=== PATIENT | male | born 1970 | race Caucasian/White ===

== ENCOUNTER 2020-11-28 07:27 | Emergency (ER) | payer SELFPAY ==
[2020-11-28 07:42] VITALS: BP 159/92; PULSE 88; RESP 18; TEMP 36.7; O2SAT 96; BMI 33.9
--- NOTE | 2020-11-28 07:49 | ED_ITS ---
HPI - Skin/Abscess/Foreign Bdy General Chief complaint: Skin/Abscess/Foreign Body Stated complaint: Rash Time Seen by Provider: 11/28/20 07:40 Source: patient Mode of arrival: ambulatory Limitations: no limitations History of Present Illness HPI narrative: 50 yo male with sore itching rash R axilla after working in the yard on Friday complaint: rash Onset (ago): day(s) (3) Location: chest and RUE Severity: moderate Quality: aching and pruritic Pain Consistency: constant Relieving factors: none Exacerbating factors: none Context: other (did yard work) Associated symptoms: itching Treatments prior to arrival: none Related Data Previous Rx's Medication Instructions Recorded cephalexin 500 mg PO BID 7 Days #14 cap 11/28/20 doxycycline hyclate 100 mg PO BID 7 Days #14 cap 11/28/20 mupirocin 1 appl TOPICAL BID 7 Days #15 g 11/28/20 prednisone 40 mg PO DAILY 5 Days #10 tab 11/28/20 Allergies Allergy/AdvReac Type Severity Reaction Status Date / Time Penicillins [PENICILLINS] Allergy Unknown SWELLING Unverified 04/06/20 15:23 Review of Systems Review of Systems: Constitutional : No Fever, No Chills ENT/Mouth : No sore throat, No Rhinorrhea Eyes: No Eye Pain, No Swelling, No Redness Cardiovascular : No Chest Pain, No SOB Respiratory : No Cough, No Sputum Gastrointestinal : No Nausea, No Vomiting, No Diarrhea, No abdominal Pain Genitourinary : No Dysuria, No Hematuria Musculoskeletal : No joint pain, No Myalgias, No Joint Swelling Skin : No Skin Lesions, positive skin rash Neuro : No Weakness, No Numbness, No Headache Psych : No Anxiety, No Depression Heme/Lymph: No Bruising, No Bleeding,No Lymphadenopathy Endocrine : No Polyuria, No Polydipsia All other systems reviewed and are negative [facility] Past Medical History Attestation statement: The following information was validated with the patient. Medical History Diabetes Social History Social History Alcohol intake: never Smoking Status: Never smoker Use of substances other than those prescribed or required for medical reasons: No Advance Directives: No Advance Directives Information Provided: No Physical Exam Vital Signs: Vital Signs: Last Vital Signs Temp 98.0 F 11/28/20 07:42 Pulse 88 11/28/20 07:42 Resp 18 11/28/20 07:42 BP 159/92 H 11/28/20 07:42 Pulse Ox 96 11/28/20 07:42 Body Mass Index 33.9 Appearance: Alert. Oriented X3. No acute distress. Eyes: Pupils equal, round and reactive to light. ENT: Pharynx normal. Neck: Normal inspection. Neck supple. CVS: Pulses normal. Respiratory: No respiratory distress. Abdomen: Soft and nontender. Skin: Linear red raised areas noted on RUE and axilla axillary area has a large patch from axilla to R middle lateral ribs, red raised, shiny, clear weeping, some crusting, mild warmth Extremities: No lower extremity edema. Neuro: Oriented X 3. No motor deficit. No sensory deficit. MDM - Skin/Abscess/Foreign Bdy MDM Narrative Medical decision making narrative: 50 yo male with DM here with what appears to be a contact dermatitis with some mild secondary infection at this time will start on steriods (discussed DM and prednisone use) and oral antibiotics as well as mupirocin given precautions to return. Discharge Plan Discharge Clinical Impression: Cellulitis Qualifiers: Site of cellulitis: extremity Site of cellulitis of extremity: upper extremity Laterality: right Qualified Code(s): L03.113 - Cellulitis of right upper limb Contact dermatitis Qualifiers: Contact dermatitis type: unspecified Contact dermatitis trigger: unspecified trigger Qualified Code(s): L25.9 - Unspecified contact dermatitis, unspecified cause Patient Disposition: Home, Self-Care Instructions: Contact Dermatitis (ED), Cellulitis (ED) Additional Instructions: return to ED for any worsening symptoms or concerns prednisone will increase your sugars please monitor carefully Prescriptions: New doxycycline hyclate 100 mg capsule 100 mg PO BID 7 Days Qty: 14 RF: 0 cephalexin 500 mg capsule 500 mg PO BID 7 Days Qty: 14 RF: 0 mupirocin 2 % ointment 1 appl topical BID 7 Days Qty: 15 RF: 0 prednisone 20 mg tablet 40 mg PO DAILY 5 Days Qty: 10 RF: 0 Referrals: Ladarius Marie MD [Primary Care Provider] - 2 days (if not better) Stand Alone Forms: Work/School Release
[2020-11-28] MEDS: predniSONE 20 MG TABLET 40 MG PO (07:54)
[2020-11-28] MEDS: cephALEXin 500 MG CAPSULE PO (07:54)
--- NOTE | 2020-11-28 08:41 | PC.NURSE ---
pt eating breakfast at this time, no rxn noted.
== END 2020-11-28 08:45 | disposition home or self-care (01) ==
PROVIDERS: Emergency Provider Emergency Medicine; PCP Internal Medicine
DX: L03.111 Cellulitis of right axilla (principal); L25.9 Unspecified contact dermatitis, unspecified cause; E11.9 Type 2 diabetes mellitus without complications
CPT/HCPCS: 99283; 99284

== ENCOUNTER 2023-03-19 12:33 | Emergency (ER) | payer OTHER, SELFPAY ==
[2023-03-19 12:45] VITALS: BP 138/77; PULSE 100; RESP 19; TEMP 36.6; O2SAT 96; BMI 37.4
--- NOTE | 2023-03-19 12:45 | ED.GENADULT ---
HPI - General Adult General Chief complaint: General Medical Stated complaint: ? Poison Alisha On Body Time Seen by Provider: 03/19/23 12:57 Source: patient and RN notes reviewed Mode of arrival: ambulatory Limitations: no limitations History of Present Illness HPI narrative: This is a 52-year-old male, with a past medical history of diabetes, presenting to the emergency department complaints of itchy rash since Friday. Patient reports that he was working out and his lawn last week and noticed an itchy rash develop on his left wrist. This is since progressed to his abdomen. Patient denies any fevers, chest pain shortness of breath, difficulty breathing swallowing. Denies taking any medications at home to treat his symptoms. No other complaints or concerns at this time. MD complaint: Rash Onset (ago): day(s) Location: abdomen and upper extremity Radiation: non-radiation Severity: moderate Relieving factors: none Exacerbating factors: none Associated symptoms: denies other symptoms Treatments prior to arrival: none Related Data Previous Rx's Medication Instructions Recorded cephalexin 500 mg capsule 500 mg PO BID 7 days #14 caps 11/28/20 doxycycline hyclate 100 mg capsule 100 mg PO BID 7 days #14 caps 11/28/20 mupirocin 2 % topical ointment 1 appl topical BID 7 days #15 grams 11/28/20 prednisone 20 mg tablet 40 mg PO DAILY 5 days #10 tabs 11/28/20 prednisone 50 mg tablet 50 mg PO DAILY 5 days #5 tabs 03/19/23 Allergies Allergy/AdvReac Type Severity Reaction Status Date / Time Penicillins [PENICILLINS] Allergy Unknown SWELLING Unverified 04/06/20 15:23 Review of Systems Review of Systems: Yes all other systems are reviewed and are negative [facility] Past Medical History Attestation statement: The following information was validated with the patient. Medical History Diabetes Social History Social History Alcohol intake: never Advance Directives: No Advance Directives Information Provided: No Physical Exam ED Vital Signs: Vital Signs - 24 hr 03/19/23 12:45 Temperature 98 F Pulse Rate 100 Respiratory Rate 19 Blood Pressure 138/77 Pulse Oximetry 96 Oxygen Delivery Method Room Air BMI result Body Mass Index 37.4 Const Other: General: Awake, alert, and oriented X3. No acute distress. HEENT: Normal inspection CVS: Normal heart rate and rhythm. Pulses normal. Respiratory: No respiratory distress Skin: Left wrist anterior aspect there is a maculopapulaar rash with surrounding excoritations noted. No surrounding erythema or warmth. No drainage. Left abdomen with maculopapular rash measuring aapproximately 8cm x 8cm. No fluctuance, drainage, warmth. Extremities: Neuro: Oriented X 3. No motor deficit. No sensory deficit. Course Course Course Narrative: This is an RME: Additional HPI, ROS, PE not included below will be deferred to primary provider. This is a [id number], with a hx of diabetes mellitus, presenting to the ER with complaints of itchy rash x 6 days. Plan: Medical Decision Making Medical Decision Making MDM Narrative: 52 y/o M presenting to the ER with complaints of itchy rash to left wrist and abdomen. VSS. No wheezing, SOB, Lungs CTAB. Airway patent. No evidence of cellulitis on exam. Rash consistent with contact dermatitis d/t poison alisha. Will treat with prednisone. Given return precautions. Stable for d/c. Differential Diagnosis Differential Diagnoses: The differential diagnosis associated with the presentation includes contact dermatitis, cellulitis, atopic dermatitis Discharge Plan Discharge Clinical Impression: Contact dermatitis Patient Disposition: Home, Self-Care Additional Instructions: Please take prescribed prednisone as directed. Finish the entire course. Ensure that you wash all clothing and chills that have been exposed to the poison alisha. Make sure you monitor your blood glucose levels as prednisone can cause a increase in your blood glucose level. If any new or worsening symptoms occur including but not limited to worsening rash, difficulty breathing or swallowing, chest pain or shortness of breath, please return for re-evaluation. Follow up with your primary care physician as needed. Prescriptions: New prednisone 50 mg tablet 50 mg PO DAILY 5 Days Qty: 5 0RF No Action doxycycline hyclate 100 mg capsule 100 mg PO BID 7 Days Qty: 14 0RF cephalexin 500 mg capsule 500 mg PO BID 7 Days Qty: 14 0RF mupirocin 2 % ointment 1 appl topical BID 7 Days Qty: 15 0RF prednisone 20 mg tablet 40 mg PO DAILY 5 Days Qty: 10 0RF Interventions: ED Discharge Assessment Last Done: 03/19/23 13:00 Discharge Date/Time: 03/19/23 13:01
== END 2023-03-19 13:01 | disposition home or self-care (01) ==
PROVIDERS: Emergency Provider Student in an Organized Health Care Education/Training Program; PCP Internal Medicine
DX: L23.7 Allergic contact dermatitis due to plants, except food (principal)
CPT/HCPCS: 99282; 99283

== ENCOUNTER 2023-04-26 10:07 | Emergency (ER) | payer OTHER, SELFPAY ==
[2023-04-26 10:22] VITALS: BP 152/71; PULSE 78; RESP 19; TEMP 36.6; O2SAT 98; BMI 36.8
--- NOTE | 2023-04-26 10:26 | ED.EYEPROB ---
HPI - Eye Problem General Chief complaint: Eye Problems Stated complaint: swollen R eye Time Seen by Provider: 04/26/23 10:29 Source: patient Mode of arrival: ambulatory Limitations: no limitations History of Present Illness HPI Narrative: 52-year-old male with a history of diabetes presents the ER with complaints of right eye blurry vision, irritation, swelling, photophobia and concern for foreign body. Patient reports he is working on a piece of equipment that was metal and the equipment hit him in the eye and he is concerned that there may be a piece of metal in his eye still. He tells me that his tetanus shot is up-to-date. He reports with in the morning when he wakes up the right eye is crusted and he has quite a bit of purulent drainage from the eye. patient does use corrective lenses but did not bring them with him today. He does not use any contacts. He reports he does see an reduction furnace operator as well as an landing gear mechanic in [place] but he is unsure of the name. MD chief complaint: eye pain Related Data Previous Rx's Medication Instructions Recorded cephalexin 500 mg capsule 500 mg PO BID 7 days #14 caps 11/28/20 doxycycline hyclate 100 mg capsule 100 mg PO BID 7 days #14 caps 11/28/20 mupirocin 2 % topical ointment 1 appl topical BID 7 days #15 grams 11/28/20 prednisone 20 mg tablet 40 mg (2 x 20 mg) PO DAILY 5 days 11/28/20 #10 tabs prednisone 50 mg tablet 50 mg PO DAILY 5 days #5 tabs 03/19/23 ciprofloxacin HCl 0.3 % eye drops 2 drp ophthalmic (eye) Q6-8H 7 04/26/23 days #5 mL Allergies Allergy/AdvReac Type Severity Reaction Status Date / Time Penicillins [PENICILLINS] Allergy Unknown SWELLING Verified 04/26/23 10:22 Review of Systems Review of Systems: Yes all other systems are reviewed and are negative Constitutional: Constitutional: Reports no additional constitutional complaints, Denies body ache(s), Denies chills, Denies fever(s), Denies headache(s) and Denies weakness Eyes: Eyes: Reports no additional eye complaints, Reports blurry vision, Reports change in vision, Reports eye discharge, Reports irritation, Reports eye pain, Reports requires corrective lenses and Reports photophobia ENT: Reports system reviewed and no additional complaints, except as documented, Denies dizziness, Denies headache(s), Denies nasal congestion, Denies nasal discharge and Denies neck pain Cardiovascular: Cardiovascular: Reports no additional cardiovascular complaints, Denies chest pain, Denies leg edema and Denies dyspnea Respiratory: Respiratory: Reports no additional respiratory complaints, Denies cough and Denies dyspnea Gastrointestinal: Gastrointestinal: Reports no additional gastrointestinal complaints, Denies abdominal pain, Denies diarrhea, Denies nausea and Denies vomiting Genitourinary: Genitourinary: Denies urinary incontinence Musculoskeletal: Musculoskeletal: Reports no additional musculoskeletal complaints, Denies back pain, Denies arthralgias, Denies joint swelling, Denies neck pain, Denies numbness and Denies tingling Integumentary/Breasts: Skin/Breast: Reports system reviewed and no additional complaints, except as docu and Denies rash Neurologic: Reports system reviewed and no additional complaints, except as documented, Denies Abnormal speech present, Denies dizziness, Denies headache(s), Denies numbness, Denies tingling and Denies weakness PMFSH Past Medical History Attestation statement: The following information was validated with the patient. Source: old records reviewed and nursing notes reviewed Medical History Diabetes Social History Social History Alcohol intake: never Advance Directives: No Advance Directives Information Provided: Yes Physical Exam Vital Signs: Vital Signs: Last Vital Signs Temp 98 F 04/26/23 10:22 Pulse 78 04/26/23 10:22 Resp 19 04/26/23 10:22 BP 152/71 H 04/26/23 10:22 Pulse Ox 98 04/26/23 10:22 O2 Del Method Room Air 04/26/23 10:22 BMI result Body Mass Index 36.8 Const: General: cooperative, healthy appearing, comfortable and no acute distress Orientation/consciousness: patient oriented x3 Limitations: no limitations HEENT: Head: Yes normal to inspection Ears: hearing grossly normal bilaterally and TM's normal bilaterally General nose exam: Normal external nose present Face and sinus: Yes normal facial exam Mouth: Normal oral and palatal mucosa present Throat: Yes posterior oropharynx normal, Yes tonsils normal and Yes uvula midline Eyes: Other: IOP right 23 IOP left 22 General: appearance normal, both eyes and all related structures Alignment and Position: alignment normal Periorbital: periorbital findings normal Eyelids: Yes eyelids normal Conjunctivae: conjunctival abnormal right conjunctival injection diffuse Sclerae: scleral abnormal right scleral injection and other ( Scleral edema) Corneas: corneas abnormal on the right ( there is diffuse uptake, no FB or abrasion ) fluorescein used Pupils: Equal, round and reactive pupils present EOM: EOMs intact bilaterally Direct Ophthalmoscopy: normal light reflex and photophobia Neck: Neck: Yes normal visual inspection and Yes full ROM Chest: Chest palpation & inspection: normal inspection of the chest Resp: Effort & Inspection: normal respiratory effort Auscultation: clear to auscultation bilaterally Cardio: Rate: regular rate Rhythm: regular rhythm Peripheral pulses: Peripheral pulses 2+ throughout GI: Inspection: Yes normal to inspection Palpation (GI): Soft to palpation and nontender Auscultation: normal bowel sounds Back/Spine/Pelvis: Thoracic/Lumbar Spine: thoracic and lumbar spine normal to inspection Skin: General skin exam: no rashes or lesions noted Neuro: General: patient oriented x3, no focal motor deficits and normal sensation to monofilament Cranial nerves: Yes Equal, round and reactive pupils present Cognition (Neuro): normal cognition Speech: No Abnormal speech present Gait exam (Neuro): Normal gait present Motor exam (neuro): 5/5 motor strength present throughout Extrem: General: Yes normal to inspection Course Reevaluation(s) Reevaluation #1: patient reports improvement in symptoms with flushing of the eye. Again I am unable to determine if there is any foreign body due to the conjunctival and scleral edema, erythema on exam. The patient does have an landing gear mechanic and I recommended that he see him next week for repeat eye exam. In the meantime we will treat him as a presumed corneal abrasion as well as conjunctivitis with topical antibiotic eye drops. Patient was unable to participate in the visual acuity and does not have his corrective lenses with him. Reviewed worrisome signs and symptoms of when to return to the emergency room. Comfortable plan for discharge home. Medications Administered Discontinued Medications Generic Name Dose Route Start Last Admin Trade Name Freq PRN Reason Stop Dose Admin Fluorescein Sodium 1 strip 04/26/23 10:26 04/26/23 10:33 Fluorescein Sodium Strip EYE-RIGHT 04/26/23 10:27 1 strip ONCE ONE Administration Tetracaine HCl 1 drop 04/26/23 10:26 04/26/23 10:32 Tetracaine Hcl/Pf 0.5% Oph Josefina 4 Ml Drops EYE-RIGHT 04/26/23 10:27 1 drop ONCE ONE Administration Medical Decision Making Medical Decision Making MDM Narrative: 52-year-old male with a history of diabetes presents the ER with complaints of right eye blurry vision, irritation, swelling, photophobia and concern for foreign body. Patient reports he is working on a piece of equipment that was metal and the equipment hit him in the eye and he is concerned that there may be a piece of metal in his eye still. He tells me that his tetanus shot is up-to-date. He reports with in the morning when he wakes up the right eye is crusted and he has quite a bit of purulent drainage from the eye. patient does use corrective lenses but did not bring them with him today. He does not use any contacts. He reports he does see an reduction furnace operator as well as an landing gear mechanic in [place] but he is unsure of the name. on exam the patient has right scleral edema/injection, right conjunctival injection, PERRLA, EOM intact. No obvious FB or abrasion. IOPs normal. Will need visual acuity The sclera/conjunctiva has moderate edema/injection and I am unable to r/o FB d/t difficulty with visualization therefore will flush eye with concepción lens Differential Diagnosis Differential Diagnoses: The differential diagnosis associated with the presentation includes corneal foreign body, corneal abrasion, conjunctivitis, contusion low concern for orbital cellulitis, globe rupture Admission/Observation Consideration of admission/observation: Escalation of care including admission/observation considered No evidence or concern for globe rupture, orbital cellulitis, acute glaucoma requiring emergent Ophthalmology consultation Tests considered The following testing was considered but not selected: no concern for globe rupture cough, orbital cellulitis requiring CT Prescription Management I considered prescription management with: Antibiotic Chronic Conditions Patient?s care impacted by: Diabetes Discharge Plan Discharge Clinical Impression: Conjunctivitis Patient Disposition: Home, Self-Care Instructions: Conjunctivitis (ED) Additional Instructions: due to the swelling and redness that you have there may be a foreign body that we are unable to visualize. Therefore it is recommended that on Friday you call your landing gear mechanic to see them for repeat eye exam. Please use the antibiotics as prescribed. Apply cold compresses to the eye as needed. Try to avoid itching or touching the eye. Return to the ER for any worsening symptoms. Prescriptions: New ciprofloxacin HCl 0.3 % drops 2 drp ophthalmic (eye) Q6-8H 7 Days Qty: 5 0RF Rx Instructions: administer while awake No Action doxycycline hyclate 100 mg capsule 100 mg PO BID 7 Days Qty: 14 0RF cephalexin 500 mg capsule 500 mg PO BID 7 Days Qty: 14 0RF mupirocin 2 % ointment 1 appl topical BID 7 Days Qty: 15 0RF prednisone 20 mg tablet 40 mg PO DAILY 5 Days Qty: 10 0RF prednisone 50 mg tablet 50 mg PO DAILY 5 Days Qty: 5 0RF Interventions: ED Discharge Assessment Last Done: 04/26/23 12:07 Discharge Date/Time: 04/26/23 12:08
--- NOTE | 2023-04-26 11:04 | MHC.EDTECH ---
completed visual acuity, patient was not able to see out of the right eye. bilaterally was 20/40 and left eye was 20/30.
--- NOTE | 2023-04-26 11:21 | PC.NURSE ---
pt placed on continuous irrigation of right eye via concepción lens, pt sts he does wear bifocal glasses at baseline, [employer] P[employer] aware pt stated that he cannot see out of right eye call chapman within reach care ongoing
--- NOTE | 2023-04-26 11:36 | PC.NURSE ---
right eye irrigated with 1000mls of NS, well tolerated by pt reports 2/10 pain in right eye post irrigation
== END 2023-04-26 12:08 | disposition home or self-care (01) ==
PROVIDERS: Emergency Provider Emergency Medicine Emergency Medical Services; PCP Internal Medicine
DX: H10.9 Unspecified conjunctivitis (principal); H53.8 Other visual disturbances; E11.9 Type 2 diabetes mellitus without complications
CPT/HCPCS: 99283